=== PATIENT | female | born 1980 | race Two or more races ===

== ENCOUNTER 2018-06-03 09:16 | Outpatient (CLI) | payer OTHER | END 2018-06-03 09:18 | disposition home or self-care (01) | LOC: SONOGRAMA 09:16 | DX: E04.1 Nontoxic single thyroid nodule (principal) ==

== ENCOUNTER 2018-11-21 00:17 | Emergency (ER) | payer OTHER ==
[~2018-11-21] VITALS: Ht 152.4 cm; Wt 72.6 kg
[2018-11-21] MEDS ORDERED: SYNTHROID50 MCG (00:26)
[2018-11-21] MEDS ORDERED: CONCEPT DHA CA1 EACH PO (03:38)
== END 2018-11-21 03:53 ==
LOC: ER 00:17
DX: O20.0 Threatened abortion (principal); Z34.81 Encounter for supervision of other normal pregnancy, first trimester

== ENCOUNTER → 2018-11-23 11:11 | Outpatient (CLI) | payer OTHER ==
[~2018-11-23 11:11] MED LIST: CONCEPT DHA CA1 EACH PO; SYNTHROID50 MCG
== END | disposition home or self-care (01) ==
LOC: LAB 11:11
DX: O20.0 Threatened abortion (principal)

== ENCOUNTER 2018-12-18 09:30 | Outpatient (CLI) | payer OTHER | END 2018-12-18 15:00 | disposition home or self-care (01) | LOC: LAB 09:30 | DX: N92.0 Excessive and frequent menstruation with regular cycle (principal); D64.9 Anemia, unspecified ==

== ENCOUNTER → 2018-12-18 | Outpatient (CLI) | payer OTHER | END | disposition home or self-care (01) | LOC: SONOGRAMA 09:44 | DX: O03.4 Incomplete spontaneous abortion without complication (principal) ==

== ENCOUNTER 2018-12-22 05:59 | Day surgery (SDC) | payer OTHER | END 2018-12-22 15:00 | disposition home or self-care (01) | LOC: CIR.AMB 05:59 | DX: O02.1 Missed abortion (principal); Z3A.01 Less than 8 weeks gestation of pregnancy ==